=== PATIENT | female | born 1950 | race Caucasian/White ===

== ENCOUNTER 2018-02-09 13:44 | Emergency (ER) | payer MEDICARE, OTHER | END 2018-02-09 15:55 | disposition home or self-care (01) | LOC: FTE 13:44 | DX: S92.355A Nondisplaced fracture of fifth metatarsal bone, left foot, initial encounter for closed fracture (principal); X58.XXXA Exposure to other specified factors, initial encounter; Y92.9 Unspecified place or not applicable | CPT/HCPCS: 73630; 73630-LT; 99283-25 ==